=== PATIENT | female | born 1995 | race Caucasian/White ===

== ENCOUNTER → 2017-07-01 | Outpatient (REF) | payer OTHER ==
[~2017-07-01] MED LIST: /MOM400 PO; ACET50TA PO; COLA50CA3 PO; IBUP600T26 PO; IBUP80TA PO
== END ==
LOC: M LAB REF 17:18
PROVIDERS: ATTEND Physician Assistant Medical
DX: J02.9 Acute pharyngitis, unspecified (principal)

== ENCOUNTER 2018-01-31 19:00 | Emergency (ER) | payer OTHER | END 2018-01-31 20:45 | disposition home or self-care (01) | LOC: M ED 19:00 | DX: L03.114 Cellulitis of left upper limb (principal); L30.9 Dermatitis, unspecified; Z88.0 Allergy status to penicillin; F17.210 Nicotine dependence, cigarettes, uncomplicated | CPT/HCPCS: 99282 ==

== ENCOUNTER 2018-05-29 13:40 | Emergency (ER) | payer MEDICAID, OTHER | END 2018-05-29 14:51 | disposition home or self-care (01) | LOC: M ED 13:40 | DX: L30.9 Dermatitis, unspecified (principal); L03.114 Cellulitis of left upper limb; Z72.0 Tobacco use; Z88.0 Allergy status to penicillin | CPT/HCPCS: 99282 ==

== ENCOUNTER → 2018-10-26 | Outpatient (REF) | payer MEDICAID ==
[~2018-10-26] MED LIST changes: +BACI500O8 TOP; +BACT2CRE TOP; +BETA5OI TOP; +CEPH250T PO; +DIPR0.052 EX; +HYDR-3363 PO
[2018-10-27 11:18] LABS: CHLAMYDIA DNA AMPLIFICATION NEGATIVE (NEGATIVE); GC DNA AMPLIFICATION NEGATIVE (NEGATIVE)
== END ==
LOC: M LAB REF 16:55
PROVIDERS: ATTEND Physician Assistant
DX: N39.0 Urinary tract infection, site not specified (principal)

== ENCOUNTER 2018-11-16 07:55 | Emergency (ER) | payer MEDICAID, OTHER ==
[~2018-11-16] VITALS: Ht 170.2 cm; Wt 81.8 kg
[2018-11-16] MEDS ORDERED: ONDANSETRON 4MG/2ML VIAL (J2405) IV ONE (08:30)
[2018-11-16 08:35] LABS: BASO % 0.7 % (0.0-1.0); EOS # 0.3 10^3/uL (0.0-0.50); EOS % 5.7 % (0.0-3.0); HEMATOCRIT 40.7 % (36.0-47.0); HEMOGLOBIN 14.8 g/dl (12.0-15.5); LYMPH # 1.6 10^3/uL (1.5-6.5); LYMPH % 28.7 % (24.0-44.0); MEAN CORPUSCULAR HEMOGLOBIN 32.9 pg (27.0-33.0); MEAN CORPUSCULAR HGB CONC 36.4 g/dl (32.0-36.5); MEAN CORPUSCULAR VOLUME 90.4 fl (80.0-96.0); MONO # 0.5 10^3/uL (0.0-0.8); MONO % 8.5 % (0.0-5.0); NEUTROPHILS # 3.1 10^3/uL (1.8-7.7); NEUTROPHILS % 56.2 % (36.0-66.0); PLATELET COUNT, AUTOMATED 204 10^3/uL (150-450); WHITE BLOOD COUNT 5.4 10^3/uL (4.0-10.0)
[2018-11-16 08:54] LABS: HCG, SERUM QUALITATIVE NEGATIVE (NEGATIVE)
[2018-11-16 08:56] LABS: ALBUMIN 3.5 GM/DL (3.2-5.2); ALT/SGPT 53 U/L (12-78); BILIRUBIN,DIRECT 0.2 MG/DL (0.0-0.2); BILIRUBIN,TOTAL 0.4 MG/DL (0.2-1.0); BLOOD UREA NITROGEN 5 MG/DL (7-18); CALCIUM LEVEL 8.4 MG/DL (8.5-10.1); CARBON DIOXIDE LEVEL 24 MEQ/L (21-32); CHLORIDE LEVEL 106 MEQ/L (98-107); GLOMERULAR FILTRATION RATE > 60.0 (>60); GLUCOSE, FASTING 99 MG/DL (70-100); LIPASE 69 U/L (73-393); POTASSIUM SERUM 3.1 MEQ/L (3.5-5.1); SODIUM LEVEL 141 MEQ/L (136-145); TOTAL PROTEIN 6.4 GM/DL (6.4-8.2)
[2018-11-16 09:14] LABS: INFLUENZA A AMPLIFICATION NEGATIVE (NEGATIVE); INFLUENZA B AMPLIFICATION NEGATIVE (NEGATIVE)
[2018-11-16] MEDS ORDERED: ONDA4TAB6 PO (10:09)
[2018-11-16 10:12] VITALS: BP 138/84
== END 2018-11-16 10:16 | disposition home or self-care (01) ==
LOC: M ED 07:55
DX: K52.9 Noninfective gastroenteritis and colitis, unspecified (principal); R11.2 Nausea with vomiting, unspecified
CPT/HCPCS: 36415; 80048; 80076; 83690; 84703; 85025; 87502; 96374; 99284; J2405

== ENCOUNTER → 2019-05-16 | Outpatient (REF) | payer OTHER ==
[~2019-05-16] MED LIST changes: -/MOM400 PO; -ACET50TA PO; +MAPA500T17 PO; +MILK10SU PO; +ONDA4TAB6 PO
== END ==
LOC: M LAB REF 10:02
PROVIDERS: ATTEND Physician Assistant
DX: J02.9 Acute pharyngitis, unspecified (principal)

== ENCOUNTER → 2021-09-30 | Outpatient (CLI) | payer OTHER ==
[2021-09-30 12:43] LABS: HEPATITIS B SURFACE ANTIGEN NEGATIVE (NEGATIVE); HEPATITIS C VIRUS ABY INDEX 0.1 INDEX (<0.8)
== END ==
LOC: M LAB 09:40
PROVIDERS: ATTEND Physician Assistant
DX: L30.9 Dermatitis, unspecified (principal)

== ENCOUNTER → 2022-08-28 | Outpatient (CLI) | payer OTHER | LOC: M OUTALCOH 13:36 | PROVIDERS: ATTEND Psychiatry & Neurology Psychiatry | DX: Z13.39 Encounter for screening examination for other mental health and behavioral disorders (principal) ==

== ENCOUNTER → 2024-04-27 | Outpatient (CLI) | payer OTHER ==
[~2024-04-27] MED LIST changes: +BETA15OI7 EX; -DIPR0.052 EX; +ONDA-282 PO; -ONDA4TAB6 PO
== END ==
LOC: M WUC 12:20
PROVIDERS: ATTEND Nurse Practitioner Family
DX: M25.572 Pain in left ankle and joints of left foot (principal)